=== PATIENT | male | born 1985 | race Two or more races ===

== ENCOUNTER 2020-02-29 09:23 | Emergency (ER) | payer MEDICAID ==
[~2020-02-29] VITALS: Ht 167.6 cm; Wt 109.1 kg
[2020-02-29] MEDS ORDERED: HYDROCODONE/ACETAMINOPHEN 5-325 MG TABLET PO ONE ×2 (10:30→14:15)
[2020-02-29 14:51] VITALS: BP 133/82
== END 2020-02-29 15:19 | disposition home or self-care (01) ==
LOC: EMS 09:38
DX: M25.522 Pain in left elbow (principal); Z88.6 Allergy status to analgesic agent
CPT/HCPCS: 29105; 73200

== ENCOUNTER 2020-03-01 06:24 | Emergency (ER) | payer MEDICAID ==
[~2020-03-01] VITALS: Ht 157.5 cm; Wt 100.0 kg
[2020-03-01] MEDS ORDERED: OxyCODONE HCL/ACETAMINOPHEN 10-325 MG TABLET PO ONE ×2 (07:45→18:15)
[2020-03-01 08:03] LABS: BASOPHILS % (AUTO) 0.7 % (0.0-2.0); EOSINOPHILS % (AUTO) 3.5 % (1.0-6.0); HEMATOCRIT 43.7 % (41-53); HEMOGLOBIN 14.6 g/dL (13.5-17.5); LYMPHOCYTES # (AUTO) 1.6 K/uL (1.0-4.8); LYMPHOCYTES % (AUTO) 24.1 % (22.0-44.0); MEAN CORPUSCULAR HEMOGLOBIN 30.2 pg (26.0-34.0); MEAN CORPUSCULAR HGB CONC 33.3 G/dL (31.0-37.0); MEAN CORPUSCULAR VOLUME 91 fL (80-100); MONOCYTES # (AUTO) 0.8 K/uL (0.1-1.0); MONOCYTES % (AUTO) 12.6 % (2.0-9.0); NEUTROPHILS # (AUTO) 3.9 K/uL (1.8-7.7); NEUTROPHILS % (AUTO) 59.1 % (40.0-70.0); PLATELET COUNT (AUTO) 173 K/uL (150-450); RED BLOOD CELL COUNT(AUTO) 4.83 MIL/uL (4.50-5.90); RED CELL DISTRIBUTION WIDTH 13.6 % (11.5-14.5)
[2020-03-01 08:13] LABS: C-REACTIVE PROTEIN QUANT 7.11 mg/dL (0.00-0.30)
[2020-03-01 09:19] LABS: ERYTHROCYTE SEDIMENTATION RATE 52 MM/HR (0-15)
[2020-03-01 11:14] LABS: URIC ACID 5.9 mg/dL (2.6-7.2)
[2020-03-01] MEDS ORDERED: FentaNYL CITRATE-PF 100 MCG/2 ML VIAL IVP ONE (14:45)
[2020-03-01] MEDS ORDERED: GADOBUTROL 1 MMOL/ML 10 ML VIAL IVP ONE (14:48)
[2020-03-01 16:54] VITALS: BP 105/61
== END 2020-03-01 18:20 | disposition home or self-care (01) ==
LOC: EMS 06:24
DX: M25.522 Pain in left elbow (principal); Z88.6 Allergy status to analgesic agent
CPT/HCPCS: 29105; 36415; 73220; 84550; 85025; 85651; 86140; 96374; 99285; A9585; J3010

== ENCOUNTER 2021-07-19 01:07 | Emergency (ER) | payer MEDICAID ==
[~2021-07-19] VITALS: Ht 165.1 cm; Wt 109.1 kg
[2021-07-19 01:51] LABS: COVID AG,FIA SOURCE NASOPHARYNGEAL
[2021-07-19 02:15] LABS: INFLUENZA TYPE A NEGATIVE FOR TYPE A (NEGATIVE); INFLUENZA TYPE B NEGATIVE FOR TYPE B (NEGATIVE)
[2021-07-19 02:20] VITALS: BP 137/82
== END 2021-07-19 02:40 | disposition home or self-care (01) ==
LOC: EMS 01:09
DX: U07.1 COVID-19 (principal); Z88.6 Allergy status to analgesic agent
CPT/HCPCS: 87426; 87804; 99283; U0003

== ENCOUNTER 2021-10-25 15:02 | Emergency (ER) | payer MEDICAID ==
[~2021-10-25] VITALS: Ht 157.5 cm; Wt 102.3 kg
[2021-10-25] MEDS ORDERED: HALOPERIDOL LACTATE 5 MG/ML VIAL IVP ONE (15:45)
[2021-10-25] MEDS ORDERED: DiphenhydrAMINE HCL 50 MG/ML VIAL IVP ONE (15:45)
[2021-10-25] MEDS ORDERED: SODIUM CHLORIDE 0.9% 1,000 ML IV ONE (15:45)
[2021-10-25 16:35] VITALS: BP 131/74
== END 2021-10-25 17:30 | disposition home or self-care (01) ==
LOC: EMS 15:02
DX: G43.909 Migraine, unspecified, not intractable, without status migrainosus (principal); E86.0 Dehydration; Z88.6 Allergy status to analgesic agent
CPT/HCPCS: 96361; 96374; 96375; 99284; J1200; J1630

== ENCOUNTER 2023-03-15 00:03 | Emergency (ER) | payer MEDICAID ==
[~2023-03-15] VITALS: Ht 157.5 cm; Wt 104.5 kg
[2023-03-15 00:38] VITALS: BP 122/70; PULSE 87; RESP 18; TEMP 98.2
[2023-03-15] MEDS ORDERED: LORazepam 2 MG/ML VIAL IM ONE (03:15)
[2023-03-15] MEDS ORDERED: DEXAMETHASONE SOD PHOS 4 MG/ML 5 ML VIAL IM ONE (03:15)
== END 2023-03-15 03:30 | disposition home or self-care (01) ==
LOC: EMS 00:04
DX: G43.909 Migraine, unspecified, not intractable, without status migrainosus (principal); Z88.6 Allergy status to analgesic agent
CPT/HCPCS: 99284; 96372; J1100; J2060